=== PATIENT | female | born 1965 | race Caucasian/White ===

== ENCOUNTER → 2018-02-03 | Day surgery (SDC) | payer OTHER ==
[~2018-02-03] MED LIST: AMLODIPINE BESYL5 MG PO; BENICAR HCT 401 EACH PO; CRESTOR10 MG; FENTANYL CITRATE/PF 100MCG/2 ML INJ ONE; GABAPENTIN300 MG PO; MIDAZOLAM HCL 2 MG/2 ML VIAL ONE; NAPROXEN250 MG PO; OMEPRAZOLE40 MG; OR PHACO EYE KIT ONE; PREOP PHACO EYE KIT ONE; PRILOSEC10 M1 PO; TRIBENZOR 40-51 EACH PO; ULTRAM50 MG PO; ZOLPIDEM TARTRA10 MG PO
--- OUTSIDE RECORDS SUMMARY | 2018-02-03 10:48 | XMS REPORT | Clinical Summary ---
Author Author [facility] Organization [facility] Address Unknown Phone Unavailable Care Team Providers Care Heel Builder Name Role Phone Sean Navarrete MD PCP Allergies Not on File Current Medications Not on file Active Problems Not on file Encounters Date Type Specialty Care Team Description 05/21/2017 Transcribe Physical Therapy Sean Aragon MD Acute medial meniscus Orders tear of left knee, initial encounter (Primary Dx) after 02/02/2017 Social History Tobacco Use Types Packs/Day Years Used Date Never Assessed Sex Assigned at Date Recorded Not on file Last Filed Vital Signs Not on file Plan of Treatment Health Maintenance Due Date Last Done Comments PAP SMEAR 1984 COLONOSCOPY 2013 MAMMOGRAM 2013 INFLUENZA VACCINE 06/03/2018 Results Not on fileafter 02/02/2017 Insurance Payer Benefit Subscriber ID Type Phone Address Plan / Group AETNA AETNA xxxxxxxxxx HMO HMO,POS,EP O, [facility] Home:
== END | disposition home or self-care (01) ==
LOC: OR 10:47
PROVIDERS: ATTEND Ophthalmology
DX: H25.11 Age-related nuclear cataract, right eye (principal); I10 Essential (primary) hypertension; E78.5 Hyperlipidemia, unspecified; K21.9 Gastro-esophageal reflux disease without esophagitis; E03.9 Hypothyroidism, unspecified; R00.1 Bradycardia, unspecified; R94.31 Abnormal electrocardiogram [ECG] [EKG]; I38 Endocarditis, valve unspecified
CPT/HCPCS: 66984; J2250; V2632

== ENCOUNTER → 2018-02-17 | Day surgery (SDC) | payer OTHER ==
--- OUTSIDE RECORDS SUMMARY | 2018-02-17 12:43 | XMS REPORT | Clinical Summary ---
Author Author [facility] Organization [facility] Address Unknown Phone Unavailable Care Team Providers Care Vtc Technician Name Role Phone Sean Navarrete MD PCP Allergies Not on File Current Medications Not on file Active Problems Not on file Encounters Date Type Specialty Care Team Description 05/21/2017 Transcribe Physical Therapy Sean Aragon MD Acute medial meniscus Orders tear of left knee, initial encounter (Primary Dx) after 02/16/2017 Social History Tobacco Use Types Packs/Day Years Used Date Never Assessed Sex Assigned at Date Recorded Not on file Last Filed Vital Signs Not on file Plan of Treatment Health Maintenance Due Date Last Done Comments PAP SMEAR 1984 COLONOSCOPY 2013 MAMMOGRAM 2013 INFLUENZA VACCINE 06/03/2018 Results Not on fileafter 02/16/2017 Insurance Payer Benefit Subscriber ID Type Phone Address Plan / Group AETNA AETNA xxxxxxxxxx HMO HMO,POS,EP O, [facility]/EC Home:
== END | disposition home or self-care (01) ==
LOC: OR 12:41
PROVIDERS: ATTEND Ophthalmology
DX: H25.12 Age-related nuclear cataract, left eye (principal); I10 Essential (primary) hypertension; E03.9 Hypothyroidism, unspecified; K21.9 Gastro-esophageal reflux disease without esophagitis; E78.5 Hyperlipidemia, unspecified; R01.1 Cardiac murmur, unspecified
CPT/HCPCS: 66984; J2250; V2632